=== PATIENT | female | born 1940 | race Caucasian/White ===

== ENCOUNTER → 2017-05-09 | Outpatient (CLI) | payer MEDICARE, BC ==
[~2017-05-09] MED LIST: ACETAMINOPHEN-1 EAC1; ADVAIR 100/501 DISK IH; AMARYL2 MG PO; AMARYL4 MG PO; ANALGESIC325 M1 PO; ASPIR 8181 M1 PO; ASPIRIN325 MG PO; ATENOLOL25 M1 PO; ATENOLOL25 MG PO; CARDIZEM30 MG PO; COMBIVENT200 INHALA IH; CYMBALTA60 MG PO; DIGOX125 MCG PO; DIGOXIN125 MCG PO; DILTIAZEM ER60 MG PO; DURAGESIC12 MICROGR TD; DURAGESIC25 MCG TD; ECOTRIN325 MG PO; FENTANYL1 EAC5 TD; FISH OIL + VIT1 EACH PO; FISH OIL 1,0001 EAC7 PO; FUROSEMIDE80 MG PO; IRON325 MG PO; KETALAR; KETAMINE; KLOR-CON M2020 MEQ PO; LANOXIN,DIGI0.125 MG PO; LASIX80 MG PO; LIPITOR10 MG PO; LIPITOR20 MG PO; LIPITOR5 MG PO; LYRICA100 MG PO; LYRICA200 MG PO; LYRICA225 MG PO; MIRALAX17 GM PO; MULTIVITAMIN1 EAC1 PO; NASONEX17 GM BOTH NARES; NEXIUM40 MG PO; NITROSTAT0.4 MG SL; PRADAXA150 MG PO; PREDNISONE PO; PROBIOTIC1 EACH PO; PROVIGIL200 MG PO; SPIRIVA1 INHALATI IH; ST. JOSEPH ASP325 MG PO; TENORMIN25 MG PO; TYLENOL WITH C1 EACH PO; VENTOLIN HFA18 GM IH; VITAMIN B-122500 MCG PO; VITAMIN B-122500 MCG SL; VITAMIN D-32000 UNIT PO; VITAMIN D35000 UNI1 PO; ZYRTEC10 M2 PO
== END | disposition home or self-care (01) ==
LOC: CDC 12:37
DX: Z01.810 Encounter for preprocedural cardiovascular examination (principal); H25.12 Age-related nuclear cataract, left eye; I44.0 Atrioventricular block, first degree; I45.4 Nonspecific intraventricular block
CPT/HCPCS: 93000